=== PATIENT | male | born 1950 ===

== ENCOUNTER → 2017-01-23 | Outpatient (RCR) | payer BC | END | disposition home or self-care (01) | LOC: WCC 13:29 | DX: M86.672 Other chronic osteomyelitis, left ankle and foot (principal); E11.621 Type 2 diabetes mellitus with foot ulcer; I73.9 Peripheral vascular disease, unspecified; Z89.422 Acquired absence of other left toe(s); Z79.4 Long term (current) use of insulin | CPT/HCPCS: 99204 ==